=== PATIENT | female | born 1995 | race Caucasian/White ===

== ENCOUNTER 2020-07-02 09:27 | Inpatient (IN) | payer MEDICAID, SELFPAY ==
[~2020-07-02] VITALS: Ht 162.6 cm; Wt 84.8 kg
[2020-07-02 09:41] VITALS: BP_SYST 113
[2020-07-02] MEDS ORDERED: NALBUPHINE HCL 10 MG/ML AMP IVP PRN (09:45)
[2020-07-02] MEDS ORDERED: LR 500 ML IV ONE (09:45)
[2020-07-02] MEDS ORDERED: TERBUTALINE SULFATE 1 MG/ML VIAL SUBCUT PRN (09:45)
[2020-07-02] MEDS ORDERED: OXYTOCIN/0.9 % SODIUM CHLORIDE 1,000 ML IV SCH (09:45)
[2020-07-02] MEDS ORDERED: LR 1,000 ML IV ONE (09:45)
[2020-07-02 10:13] LABS: BASOPHILS % (AUTO) 0.2 % (0.0-2.0); EOSINOPHILS # (AUTO) 0.1 K/uL (0.0-0.4); EOSINOPHILS % (AUTO) 1.1 % (0.0-4.0); HEMATOCRIT 35.3 % (36-48); HEMOGLOBIN 12.2 g/dL (12.0-16.0); LYMPHOCYTES # (AUTO) 2.1 K/uL (1.0-5.5); LYMPHOCYTES % (AUTO) 22.4 % (20.5-51.5); MEAN CORPUSCULAR HEMOGLOBIN 30 pg (27-31); MEAN CORPUSCULAR HGB CONC 34 % (32-36); MEAN CORPUSCULAR VOLUME 86 fL (79.0-98.0); MONOCYTES # (AUTO) 0.7 K/uL (0.0-1.0); MONOCYTES % (AUTO) 7.3 % (1.7-9.3); NEUTROPHILS # (AUTO) 6.4 K/uL (1.8-7.7); PLATELET COUNT (AUTO) 218 K/uL (130-430); RED CELL DISTRIBUTION WIDTH 14.3 % (9.0-15.0); WHITE BLOOD COUNT (AUTO) 9.3 K/uL (4.8-10.8)
[2020-07-02] MEDS: LR 1,000 ML IV SCH ×3 (10:41→21:22)
[2020-07-02] MEDS ORDERED: BUPIVACAINE /PF 0.5% 30 ML VIAL ONE (10:44)
[2020-07-02] MEDS ORDERED: fentaNYL CITRATE/PF 100 MCG/2 ML AMP ONE (18:42)
[2020-07-02] MEDS ORDERED: FENT2mCg/mL-ROPIVA0.2%/NS EPID 200 ML EP SCH (18:42)
[2020-07-02] MEDS ORDERED: ROPIVACAINE HCL/PF 0.2% 200 ML ONE (18:43)
[2020-07-03] MEDS ORDERED: DERMOPLAST SPRAY TP ONE (05:41)
[2020-07-03] MEDS ORDERED: WITCH HAZEL LEAF 1 MED.PAD MED.PAD TP ONE (05:41)
[2020-07-03] MEDS ORDERED: ANUSOL 1 EA SUPP.RECT (PREPARATION H) RC PRN (05:45)
[2020-07-03] MEDS ORDERED: RHO(D) IMMUNE GLOBULIN/MALTOSE 1500 UNITS/1.3 ML (WINHRO) IM PRN (05:45)
[2020-07-03] MEDS ORDERED: NALOXONE HCL 0.4 MG/ML AMP (NARCAN) IVP PRN ×2 (05:45)
[2020-07-03] MEDS ORDERED: DERMOPLAST SPRAY TP PRN (05:45)
[2020-07-03] MEDS ORDERED: METHYLERGONOVINE MALEATE 0.2 MG TABLET PO PRN (05:45)
[2020-07-03] MEDS ORDERED: DIPH-TET-PERTUS Vaccine 0.5 ML VIAL (ADACEL) I.M. PRN (05:45)
[2020-07-03] MEDS ORDERED: WITCH HAZEL LEAF 1 MED.PAD MED.PAD TP PRN (05:45)
[2020-07-03] MEDS ORDERED: SENNOSIDES/DOCUSATE SODIUM 1 TAB TABLET(SENOKOT-S) PO PRN (05:45)
[2020-07-03] MEDS ORDERED: HYDROcodone/ACETAMIN 5-325 MG TAB (NORCO/ VICODIN) PO PRN (05:45)
[2020-07-03] MEDS ORDERED: HYDROCORTISONE 0.5% CREAM 28.4 GM CREAM.GM. TP PRN (05:45)
[2020-07-03] MEDS ORDERED: OXYTOCIN/0.9 % SODIUM CHLORIDE 1,000 ML IV ONE (05:45)
[2020-07-03] MEDS ORDERED: MEASLES,MUMPS&RUBELLA VACC/PF 12500 UNIT/0.5 ML VIAL SUBQ PRN (05:45)
[2020-07-03] MEDS ORDERED: LANOLIN 7 GM OINT. TP PRN (05:45)
[2020-07-03] MEDS: IBUPROFEN 600 MG TABLET PO SCH ×3 (05:55→17:22)
[2020-07-03] MEDS: HYDROcodone/ACETAMIN 5-325 MG TAB (NORCO/ VICODIN) PO PRN ×3 (05:58→20:56)
[2020-07-03] MEDS: DOCUSATE SODIUM 100 MG CAPSULE PO PRN ×3 (05:59→20:56)
[2020-07-03] MEDS ORDERED: TEMAZEPAM 15 MG CAPSULE PO PRN (21:00)
[2020-07-04] MEDS: IBUPROFEN 600 MG TABLET PO SCH ×4 (00:06→23:45)
[2020-07-04] MEDS: DOCUSATE SODIUM 100 MG CAPSULE PO PRN ×2 (06:09→15:41)
[2020-07-04 06:45] LABS: HEMATOCRIT 27.7 % (36-48); HEMOGLOBIN 9.4 g/dL (12.0-16.0)
[2020-07-04] MEDS ORDERED: PENICILLIN G BENZATHINE 1.2 MMU/2 ML SYR IM ONE (13:30)
[2020-07-04] MEDS: HYDROcodone/ACETAMIN 5-325 MG TAB (NORCO/ VICODIN) PO PRN (21:52)
[2020-07-05] MEDS: IBUPROFEN 600 MG TABLET PO SCH ×2 (06:00→12:12)
== END 2020-07-05 14:36 | disposition home or self-care (01) | DRG 560 ==
LOC: SPU 09:27
PROVIDERS: ADMIT Obstetrics & Gynecology; ATTEND Obstetrics & Gynecology
PROC: 10E0XZZ Delivery of Products of Conception, External Approach (ICD-10-PCS; principal; 2020-07-02)
PROC: 0W8NXZZ Division of Female Perineum, External Approach (ICD-10-PCS; 2020-07-02)
PROC: 3E0R3BZ Introduction of Anesthetic Agent into Spinal Canal, Percutaneous Approach (ICD-10-PCS; 2020-07-02)
PROC: 00HU33Z Insertion of Infusion Device into Spinal Canal, Percutaneous Approach (ICD-10-PCS; 2020-07-02)
DX: O60.14X0 Preterm labor third trimester with preterm delivery third trimester, not applicable or unspecified (principal); Z20.822 Contact with and (suspected) exposure to COVID-19; Z3A.38 38 weeks gestation of pregnancy; Z37.0 Single live birth
CPT/HCPCS: 36415; 85018-TC; 85025; 86592; 86762; 86780; 86886; 86900; 86901; 87340; J0561; J2300; J2590; J3010; J3490; J7120